=== PATIENT | female | born 1955 | race Caucasian/White ===

== ENCOUNTER 2019-04-25 07:22 | Outpatient (CLI) | payer BC, SELFPAY ==
--- NOTE | ~2019-04-25 | NM_ITS ---
EXAMINATION: NM rio stress w perfusion DATE: 04/25/2019 10:49 INDICATION: Dyspnea on exertion. Preop. TECHNIQUE: Rest images were obtained following intravenous administration of 11.22 mCi Tc99m tetrofos min (Myoview). The patient was infused intravenously with Lexiscan (regadenoson). Then, 32.7 mCi Tc99 m tetrofosmin (Myoview) was administered intravenously, and stress images were obtained. Data was rec onstructed into short axis and horizontal and vertical long axis SPECT images. Gated SPECT images wer e also obtained. COMPARISON: None. FINDINGS: There is no definite reversible or fixed perfusion abnormality to suggest ischemia or infar ction. There is no segmental wall motion abnormality. Left ventricular ejection fraction measures > 70%. IMPRESSION: 1. No definite ischemia or infarct. 2. Normal left ventricular ejection fraction measuring >70%. Reviewed, dictated and finalized at location A. E CQ DEVELOPER
--- NOTE | 2019-04-25 07:35 | EST_ITS ---
Patient Info Name: Britt Ferro Age: 63 years : 1955 Gender: Female Ht: 67 in Wt: 200 lbs BSA: 2.10 m2 Exam Date: 04/25/2019 8:43 AM Exam Location: [facility] Stress Patient Status: Outpatient Admit Date: 04/25/2019 Staff Ordering Physician: Júnior Gupta DO Attending Provider: Júnior Gupta DO Exercise Technologist: Elizabeth Trinidad RDCS Exercise Physician: Júnior Gupta DO Exam Type: CA stress rio w NM Study Info Indications Z01.818 - Encounter for other preprocedural examination R06.09 - Other forms of dyspnea A regadenoson stress test was performed. Summary 1. 1. Negative lexiscan stress test for ischemic ST changes by ECG criteria. 2. 2. Stable hemodynamics throughout the test. 3. 3. Nuclear scan to follow and will be reported separately. Please correlate with it. 4. 4. Patient informed of the above results. Protocol: Lexiscan Stress ECG Details Stage: REST Duration (min): 1 min : 10 sec HR (bpm): 89 SBP (mmHg): 107 DBP (mmHg): 63 Stage: REST Duration (min): 20 min : 56 sec HR (bpm): 88 SBP (mmHg): 107 DBP (mmHg): 63 Stage: STAGE 1 Duration (min): 1 min : 0 sec HR (bpm): 107 SBP (mmHg): 107 DBP (mmHg): 63 Stage: RECOVERY Duration (min): 1 min : 0 sec HR (bpm): 108 SBP (mmHg): 184 DBP (mmHg): 60 Stage: RECOVERY Duration (min): 2 min : 0 sec HR (bpm): 107 SBP (mmHg): 184 DBP (mmHg): 60 Stage: RECOVERY Duration (min): 3 min : 0 sec HR (bpm): 105 SBP (mmHg): 263 DBP (mmHg): 123 Stage: RECOVERY Duration (min): 4 min : 0 sec HR (bpm): 106 SBP (mmHg): 115 DBP (mmHg): 79 Stage: RECOVERY Duration (min): 4 min : 59 sec HR (bpm): 99 SBP (mmHg): 111 DBP (mmHg): 78 Rest HR: 88 bpm Peak HR: 112 bpm Rest Sys BP: 107 mmHg Peak Sys BP: 130 mmHg Max Pred HR: 157 bpm % Max Pred HR: 71 % Target HR: 133 bpm Max RPP: 14,560 bpm*mmHg Termination Reason: Completed protocol Cardiac Symptoms: Shortness of breath Total Time: 1 min : 0 sec Rest Muñoz BP: 63 mmHg Peak Muñoz BP: 60 mmHg Total Dose: 0.4 mg Resting ECG Sinus rhythm, low voltage in diffuse leads. Stress ECG No ST changes. Arrhythmias None. Report Signatures
== END 2019-04-25 07:23 | disposition home or self-care (01) ==
PROVIDERS: PCP Family Medicine; Visit Provider Internal Medicine Cardiovascular Disease
DX: Z01.810 Encounter for preprocedural cardiovascular examination (principal); R06.09 Other forms of dyspnea
CPT/HCPCS: 78452; 93017; A9502; J2785

== ENCOUNTER 2019-04-30 01:17 | Day surgery (SDC) | payer BC, SELFPAY ==
[2019-04-11 14:41] VITALS: BP 125/81; PULSE 83; RESP 16; TEMP 36.8; O2SAT 98; BMI 32.3
--- NOTE | 2019-04-28 15:21 | HP_ITS ---
DATE OF SERVICE: 04/30/2019 ADMITTING DIAGNOSIS: Degenerative joint disease, right knee. HISTORY OF PRESENT ILLNESS: The patient is a 63-year-old female, patient of Dr. Ferguson, who presents today for a right total knee arthroplasty. She has been having pain in the right knee for several years. She has severe [id number] arthritis in the medial compartment. She has had a partial knee replacement done on her left knee, which she is doing very well. Unfortunately, her right knee remains very symptomatic and painful for her on a daily basis. She feels at this point she would rather proceed with surgical procedure rather than continued nonsurgical treatment. She has been evaluated for possible partial knee replacement. Unfortunately, findings on MRI scan precluded this and therefore, presents today for a right total knee arthroplasty. PAST SURGERIES: She has had a bunion surgery on the right foot in December of 2018, partial knee in 2015, lumpectomy in 2007, sinus surgery in 2002. MEDICATIONS: She takes 1. Atorvastatin 20 mg daily. 2. Fluconazole 150 mg daily. 3. Hydrochlorothiazide 25 mg daily. 4. Lisinopril 40 mg daily. ALLERGIES: NO KNOWN DRUG ALLERGIES. FAMILY HISTORY: Noncontributory. SOCIAL HISTORY: She is a nonsmoker. PHYSICAL EXAMINATION: VITAL SIGNS: She is 5 feet 8 inches, 205 pounds. Other vital signs per nursing on the morning of surgery. HEENT: Grossly normal. LUNGS: Clear bilaterally. HEART: Regular rate and rhythm. EXTREMITIES: She walks with a mild limp. Range of motion of the right knee is from 0-140. Normal AP stability as well as medial-lateral stability. No edema in the right lower extremity. Skin is all normal. Hip range of motion is full without discomfort. Negative Stinchfield maneuver. 2+ dorsalis pedis and posterior tibial pulse. Normal sensation to right lower extremity. IMAGING DATA: X-rays demonstrate severe medial compartment arthritis with mild subluxation of the femur on the tibia. IMPRESSION: The patient has severe medial compartment arthritis. Again, she has had an MRI scan, which was reviewed by Dr. George. Due to the findings on this, he did not feel she would be a good partial candidate and therefore has recommended total knee, which the patient would like to proceed with. Surgical procedure as well as risks complications were discussed. All questions were answered to proceed. The patient will avoid any aspirin, ibuprofen products 1 week prior to surgery. We will use Eliquis for 2 weeks followed by aspirin for DVT prophylaxis. The patient will see Dr. Ferguson. She is also seeing Dr. Gupta, the histology tech, for presurgical clearance. She has had a stress test that was done on 04/25/2019, which showed no definite ischemia or infarct and ejection fraction was greater than 70%. The patient's nasal swab was negative. Hemoglobin 15.0, platelets are 255. On Chem panel, potassium was found to be low at 3.1, this is being supplemented. We will check another potassium the morning of surgery. Her creatinine is 0.80 with GFR greater than 60. D I MT: Kristel
[2019-04-30] VITALS (12 sets, daily range): BP systolic 113–136; BP diastolic 66–74; PULSE 79–105; RESP 11–20; TEMP 36.6–37; O2SAT 94–99
--- NOTE | ~2019-04-30 | XR_ITS ---
EXAMINATION: XR knee RT 2V DATE: 04/30/2019 16:19 INDICATION: Total right knee arthroplasty. Postop. TECHNIQUE: 2 views of right knee were obtained. COMPARISON: None. FINDINGS: There is a total right knee arthroplasty without patellar resurfacing in near-anatomic alig nment. No fracture. There is gas in the knee joint and soft tissues, consistent with recent surgery. IMPRESSION: 1. Total right knee arthroplasty in near-anatomic alignment. Reviewed, dictated and finalized at location A. GRAPH OPERATOR
--- NOTE | 2019-04-30 09:50 | WPDANESEPPF ---
Anes - Initial Pre Proc Eval Procedure: Operation Date: 04/30/19 12:00 Proposed Procedures p Right Total Knee Arthroplasty - Joey De Santiago MD Date/Time: 04/30/19 09:50 Surgeon: Joey De Santiago MD Pre Op Diagnosis: OA Right Knee Patient Data Age: 63 Gender: F Height: 1.7 m Weight: 93.6 kg Last Vital Signs Temp 36.8 C 04/11/19 14:41 Pulse 83 04/11/19 14:41 Resp 16 04/11/19 14:41 BP 125/81 04/11/19 14:41 Pulse Ox 98 04/11/19 14:41 Allergies Allergy/AdvReac Type Severity Reaction Status Date / Time oxycodone AdvReac Nausea Verified 04/30/19 10:48 Home Medications Medication Instructions Recorded Confirmed Type atorvastatin 20 mg PO DAILY 04/11/19 04/30/19 History estradiol 10 mcg vaginal insert, See Rx Instructions VAGINAL 04/21/19 04/21/19 History in a starter dose pack .COMPLEX hydrochlorothiazide 25 mg tablet 12.5 mg PO DAILY tablet 04/21/19 04/21/19 History lisinopril 40 mg tablet 20 mg PO DAILY tablet 04/21/19 04/21/19 History ECG: SINUS RHYTHM LOW QRS VOLTAGE IN PRECORDIAL BORDERLINE R WAVE PROGRESSION, ANTERIOR LEADS BORDERLINE T WAVE ABNORMALITY- ANTEROLAT/INF LEADS BASELINE ARTIFACT- I, II, III, AVR, AVL, AVF BORDERLINE ECG Other Studies: stress test 04/25/2019 FINDINGS: There is no definite reversible or fixed perfusion abnormality to suggest ischemia or infarction. There is no segmental wall motion abnormality. Left ventricular ejection fraction measures >70%. IMPRESSION: 1. No definite ischemia or infarct. 2. Normal left ventricular ejection fraction measuring >70%. Patient hx anesthesia problems: none Family hx anesthesia problems: none [facility] Past Medical History Medical History (Updated 04/30/19 @ 12:01 by Angel Lehman DO) FHx: migraine headaches Hyperlipidemia Hypertension Psychiatric disorder Surgical History Surgical History (Updated 04/21/19 @ 10:36 by Vannesa Melendez, NORA) History of bunionectomy History of left knee surgery History of reduction surgery of right breast History of sinus surgery Family History Family History (Updated 04/21/19 @ 10:37 by Vannesa Melendez CMA) Father Diabetes mellitus Hypertension Alzheimer disease Mother Hypertension Hyperlipidemia Sibling Hypertension Hyperlipidemia Afib Social History Social History (Updated 04/21/19 @ 10:37 by Vannesa Melendez CMA) Smoking status: Never smoker Alcohol intake: current Gender identity (if verbalized by the patient): Female Anes - Eval Final PreProcedure Day of Procedure 04/30/19 09:50 Patient weight: obese Heart: regular rate and rhythm Lungs: clear to auscultation and normal air movement Airway: Mallampati scale class II Neurological: alert and oriented Last oral intake: >/= 8 hours ASA classification: III Emergent: no Anesthetic plan: proceed Anesthesia type and monitoring: general ETT and standard monitoring Informed Consent: The patient's anesthetic plan and its attendant risks and benefits were discussed with the patient/family/POA. Questions were solicited and answers provided to the satisfaction of the patient/family/POA.
[2019-04-30] MEDS: LACTATED RINGERS 1,000 ML 30 ML IV CONT ×2 (10:25→15:59)
--- NOTE | 2019-04-30 12:21 | SUR.PREOP ---
1215- CHECKED ON PT IN PREOP. PT FACE RED AND SHE STATED HER HEAD ITCHES. NO OTHER SYMPTOMS. VANCOMYCIN RUNNING, STOPPED VANCO. PT UP TO RESTROOM. DR. THAKKAR NOTIFIED. LR RUNNING.
--- NOTE | 2019-04-30 12:43 | WPDHPUPDATE1 ---
History and Physical Update Update Date/Time: 04/30/19 12:43 History and Physical has been reviewed, including an updated exam of the patient. There are NO changes in the patient's condition. Risks, benefits, and alternatives have been discussed and questions answered. Patient agrees to proceed with procedure.
[2019-04-30] MEDS: IBUPROFEN IV 800 MG/200 ML 800 MG/200 ML BAG 400 MG IVPB (12:50)
[2019-04-30] MEDS: ceFAZolin 2 GM/D5W 50 ML 2 GM/50 ML BAG IVPB (12:52)
[2019-04-30] MEDS: ceFAZolin SODIUM 1 GM VIAL 3 GM IRRIGATION (13:59)
[2019-04-30] MEDS: ceFAZolin SODIUM 1 GM VIAL IV PUSH (14:53)
--- NOTE | 2019-04-30 15:43 | PM.PROC ---
Procedure Note - Detailed Date of procedure: 04/30/19 Pre-op diagnosis: OA Right Knee Post-op diagnosis: same Procedure performed: Right total knee arthroplasty I Description of procedure: Patient brought to the operating room general anesthesia was administered of the right knee prepped draped usual fashion. She received weight based vancomycin 2 g of Ancef preoperatively. 1 g of tranexamic acid IV given. limb was exsanguinated and tourniquet elevated to 300 mm of mercury. A 7 inch longitudinal midline incision was used and a vastus medialis splitting approach utilized. The infrapatellar and suprapatellar fat pads were excised and a quadriceps synovectomy carried out the patella showed chondromalacia of the far medial aspect but the remainder of the articular cartilage was normal I thought this was most appropriate for patellar non resurfacing. A lateral facetectomy was performed. a guide fili was inserted down the femoral canal after aspiration canal contents using the 5? valgus cutting bushing 10 mm of bone removed the distal femur. the tibial plateau was cut performing a skim cut off the medial tibial plateau where area. she signed a significant varus alignment to it tibia and this removed about 12 or 13 mm of bone laterally. the flexion gap was assessed and measured 8 mm medially and 14 mm laterally. we found that after drawing on Whitesides line and the trans epicondylar axis for degrees of external rotation matched the trans epicondylar axis well the femur was sized to a 67.5 Bankart AP and chamfer cuts were made and this fit line to line medial collateral and the anterior cut rested on the anterior cortex. The tibia was sized to a 75 vanguard which fit line to line fixed route bus operator laterally and anteromedially. This was punched and we removed additional medial tibial and fixed route bus operator medial tibial osteophyte. Pino we trialed with the 12 PS insert. the knee came out to test full extension with a negative bounce. At 90? of flexion the medial side gaps 1 mm but the a lateral side was a bit loose at 3 min and extension medial back at her 2 mm the lateral side gap 4 mm. We trialed with a 13 insert and there was no plica left knee anterior drawer degrees and in the knee lacked few degrees of extension with a positive bounce and no plate medially with valgus stress in extension. the superficial collateral ligament had not been stripped at this point the capsule Zenia osteophytes and anterior subluxation was released all the way around I felt that the lateral side was too loose in flexion extension with the 12 insert so I elected to reapplied tibial cutting guide and put degree of varus on the tibial cut we carefully removed mm of bone from the sclerotic medial side and made sure we had a flat tibial surface with no off. We Re punched the tibia. Alignment looked like 1? varus with a long alignment fili appropriate slope. On trialing with a 13 we now had a mm of plate medially at 90? 2 mm of lateral play in a more appropriate anterior drawer feel and in extension the medial side opened up 1-2 laterally 3 mm that had better stability varus well and 30? flexion the same stability findings. Of medial lug drills lug holes drilled on the femur and posterior osteophytes bone was removed the medial lateral femoral condyles. step drill was used to make a full perforations in the tibial plateau. Two packages of Biomet cement were mixed 1 continue gentamicin powder the cement was medially applied the tibial component then the femoral component cement applied to the tibial plateau pressurized in the 75 vanguard tibia fully seated. Cement applied to the femur and the 67.5 femoral component fully seated. a 13 mm 5 and 1 trial was placed and the knee brought into extension for pressurization. Tourniquet was released. total tourniquet time emboli was about 95 min. Cement was allowed to harden in hemostasis was achieved excess cement was sought for removed and we trialed with a 13 mm insert which had th
--- NOTE | 2019-04-30 16:20 | SUR.PHASEI ---
1610 xrays of right knee done
--- NOTE | 2019-04-30 17:07 | SUR.PHASEI ---
1650 updated family in waiting room.
--- NOTE | 2019-04-30 17:35 | PC.NURSE ---
This patient, Britt Ferro, was admitted to [facility] Surg Room 315-01. Patient/family oriented to hospital policies and general routines including ID bracelet, bed and alarms, visiting hours, pain management, procedures, bathroom and other care routines, personal items, smoking policy, room service/diet, and visiting hours. Valuables list has been completed. Information on how to activate the Rapid Response Team has been discussed. Patient/Family are encouraged to report perceived risks to care and to ask questions if they do not understand what they are told or what they should do.
[2019-04-30] MEDS: TRAMADOL HCL 50 MG TABLET PO ×2 (18:14→23:47)
[2019-04-30] MEDS: DOCUSATE SODIUM 100 MG CAPSULE PO (18:49)
[2019-04-30] MEDS: SODIUM CHLORIDE 0.9% IV 1,000 ML 125 ML IV CONT (18:50)
[2019-04-30] MEDS: GABAPENTIN 300 MG CAPSULE PO (18:52)
[2019-04-30] MEDS: ACETAMINOPHEN 500 MG TABLET 1000 MG PO (23:47)
[2019-05-01 02:00] VITALS: BP 97/56; PULSE 70; RESP 16; TEMP 36.3; O2SAT 93
[2019-05-01] MEDS: ACETAMINOPHEN 500 MG TABLET 1000 MG PO ×2 (05:27→13:47)
[2019-05-01] MEDS: TRAMADOL HCL 50 MG TABLET PO ×2 (05:28→13:47)
[2019-05-01 06:00] VITALS: BP 106/58; PULSE 67; RESP 16; TEMP 36.4; O2SAT 93
[2019-05-01 06:57] LABS: Basophils Percent Auto 0.1 % (0.2-1.2); Hematocrit 35.1 % (37.0-47.0); Hemoglobin 11.5 g/dL (12.0-15.0); Immature Granulocyte Absolute 0.08 K/mm3 (0.00-0.031); Immature Granulocyte Percent A 0.7 % (0-0.5); Lymphocytes Absolute Auto 0.56 K/mm3 (0.9-3.2); Mean Corpuscular HGB Conc 32.8 g/dl (32-36); Mean Corpuscular Volume 88.6 fl (80-100); Mean Platelet Volume 10.4 fl (7.4-10.4); Monocytes Absolute Auto 0.6 K/mm3 (0.1-0.6); Monocytes Percent Auto 5.4 % (2.6-8.5); Neutrophils Absolute Auto 9.9 K/mm3 (1.3-6.7); Neutrophils Percent Auto 88.8 % (45.5-73.1); Platelet Count Result 193 k/mm3 (150-375); Red Blood Count 3.96 M/mm3 (4.2-5.4); Red Cell Distribution Width 11.9 % (11.5-14.5); White Blood Count 11.1 K/mm3 (4.5-10.0)
[2019-05-01 07:09] LABS: Blood Urea Nitrogen 16 mg/dL (7-17); Calcium 8.3 mg/dL (8.4-10.2); Carbon Dioxide 28 mmol/L (22-30); Chloride 101 mmol/L (98-107); Estimated CRCL calculation 73 ml/min; Estimated Glomerular Filt Rate > 60; Glucose 117 mg/dL (65-105); Potassium 3.8 mmol/L (3.4-5.0); Sodium 138 mmol/L (137-145)
[2019-05-01] MEDS: GABAPENTIN 300 MG CAPSULE PO ×2 (08:58→13:47)
[2019-05-01] MEDS: polyethylene glycoL 3350 17 GM POWD.PACK PO (08:58)
[2019-05-01] MEDS: APIXABAN 2.5 MG TABLET PO (08:59)
[2019-05-01] MEDS: ATORVASTATIN 20 MG TABLET PO (09:00)
[2019-05-01] MEDS: SENNA/DOCUSATE SODIUM TABLET 2 TAB PO (09:01)
[2019-05-01 10:00] VITALS: BP 98/63; PULSE 78; RESP 16; TEMP 36.6; O2SAT 97
--- NOTE | 2019-05-01 10:28 | DS_ITS ---
DATE OF DISCHARGE: 05/01/2019 ADMITTING DIAGNOSIS: Degenerative joint disease, right knee. HOSPITAL COURSE: The patient is a 63-year-old female who underwent right total knee arthoplasty by Dr. De Santiago on 04/30/2019, underwent procedure without any complications. Postoperatively, she has been afebrile. Vital signs were stable. Neurovascularly intact. Her wound is dry. Postop day 1, Chem panel is all within normal limits. Hemoglobin was 11.5, platelets 193. She is weightbearing as tolerated. She is on Eliquis for 2 weeks followed by baby aspirin for DVT prophylaxis. She has had difficulties in the past with narcotics. Pain at this point on postop day 1, has been well controlled with Celebrex 100 mg daily as well as gabapentin 300 mg t.i.d. and tramadol. She is also on MiraLAX and Senokot. Her wound is dry. She has a Mediplex dressing over it. She has outpatient therapy starting on Sunday. The patient was advised to keep leg elevated to prevent swelling, but do her exercises on a regular basis at home. If she has any questions or concerns, she is to call the office; otherwise, will see her at her appointed date. Shanna I MT: Kristel
--- NOTE | 2019-05-01 11:48 | PM.IMCN ---
Assessment and Plan Assessment and plan (1) Primary osteoarthritis of right knee: Code(s): M17.11 - Unilateral primary osteoarthritis, right knee Status: Acute Assessment and Plan: Now status post right total knee replacement by Dr. De Santiago on 04/30/2019. POD #1. Postoperative management per Orthopedics. Continue PT/OT. As patient has not been symptomatic with lower blood pressure, medically stable to discharge when ready orthopedically. Thank you for allowing us to participate care this patient. Will follow as long as she is in Hospital. (2) Status post total right knee replacement: Code(s): Z96.651 - Presence of right artificial knee joint Status: Acute Assessment and Plan: POD #1. Plan per Orthopedics. (3) Hypertension: Qualifiers: Hypertension type: essential hypertension Qualified Code(s): I10 - Essential (primary) hypertension Code(s): I10 - Essential (primary) hypertension Status: Acute Assessment and Plan: Blood pressure reviewed on 05/01/2019. Agree with holding home hydrochlorothiazide and lisinopril. Will continue to monitor while here. (4) Hyperlipidemia: Qualifiers: Hyperlipidemia type: unspecified Qualified Code(s): E78.5 - Hyperlipidemia, unspecified Code(s): E78.5 - Hyperlipidemia, unspecified Status: Acute Assessment and Plan: Continue atorvastatin. (5) DVT prophylaxis: Code(s): Z29.9 - Encounter for prophylactic measures, unspecified Status: Acute Assessment and Plan: Apixaban per Orthopedics. HPI Data of Consult Consult date: 05/01/19 Requesting Physician: Joey De Santiago MD Primary Care Provider: David FergusonMD Consult Narrative Narrative: Date and Time of Service of Consult: May 01, 2019 at 11:25 a.m.. Reason for Consultation: Medical management. History of Present Illness: Britt Ferro is a 63 year old female with known osteoarthritis the right knee was brought in electively on 04/30/2019 for right total knee replacement. Patient has been doing well postoperatively. She had failed conservative management having previously used oral medications as well as having injection in the right knee. She does have pain in the right knee currently but this is tolerable. She denies headache and dizziness chest pain. No shortness of breath. No abdominal pain. She does have known hypertension for which she is now being followed by Dr. Gupta. She recently had decrease in her medication due to lower blood pressure. At the present time, patient still has urinary catheter in place. Review of Systems Review of Systems: All systems reviewed & are unremarkable except as noted in HPI and below Constitutional: Constitutional: Denies chills and Denies fever(s) Eyes: Eyes: Denies blurry vision and Denies diplopia ENT: Denies nasal congestion and Denies nasal discharge Cardiovascular: Cardiovascular: Denies chest pain, Denies lightheadedness and Denies palpitations Respiratory: Respiratory: Denies cough and Denies dyspnea Gastrointestinal: Gastrointestinal: Denies abdominal pain, Denies nausea and Denies vomiting Genitourinary: Comments: Urinary catheter in place Musculoskeletal: Musculoskeletal: Reports arthralgias (Right knee tolerable) Integumentary/Breasts: Skin/Breast: Denies rash Neurologic: Denies confusion, Denies vertigo, Denies headache(s) and Denies numbness Psychiatric: Psychiatric: Denies anxiety, Denies confusion and Denies depression [facility] Past Medical History Medical History FHx: migraine headaches Hyperlipidemia Hypertension Psychiatric disorder Surgical History Surgical History History of bunionectomy History of left knee surgery History of reduction surgery of right breast History of sinus surgery Family Hi
--- NOTE | 2019-05-01 14:49 | P.PNAN_ITS ---
Anes - Prog Note Post-Op Date/Time: 05/01/19 14:49 Cardiovascular status: normal Respiratory status: normal Airway patency: baseline Mental status: baseline Post-Op hydration status: normal Vital Signs: Last Vital Signs Temp 97.9 F 05/01/19 10:00 Pulse 78 05/01/19 10:00 Resp 16 05/01/19 10:00 BP 98/63 L 05/01/19 10:00 Pulse Ox 97 05/01/19 10:00 I/O: Intake & Output 04/30/19 05/01/19 05/01/19 23:59 07:59 15:59 Intake Total 1380 870 490 Output Total 250 750 Balance 1130 120 490 Laboratory Tests 05/01/19 06:17 05/01/19 06:17 05/01/19 05/01/19 06:17 06:17 WBC 11.1 H RBC 3.96 L Hgb 11.5 L D Hct 35.1 L MCV 88.6 MCH 29.0 MCHC 32.8 RDW 11.9 Plt Count 193 MPV 10.4 Immature Gran % (Auto) 0.7 H Neut % (Auto) 88.8 H Lymph % (Auto) 5.0 L [place] % (Auto) 5.4 Eos % (Auto) 0.0 Baso % (Auto) 0.1 L Lymph # (Auto) 0.56 L [place] # (Auto) 0.6 Eos # (Auto) 0.0 Baso # (Auto) 0.0 Abs Immat Gran (auto) 0.08 H Absolute Neuts (auto) 9.9 H Absolute Nucleated RBC 0.0 Nucleated RBC % 0.0 Sodium 138 Potassium 3.8 Chloride 101 Carbon Dioxide 28 BUN 16 Creatinine 0.80 Estim Creat Clear Calc 73 Estimated GFR > 60 Glucose 117 H Calcium 8.3 L Post-procedural complaints: none Patient Feedback: Patient satisfied with anesthetic care.
[2019-05-01] MEDS: CELECOXIB 100 MG CAPSULE PO (15:16)
--- NOTE | 2019-05-01 19:54 | PC.NURSE ---
Patient discharged via wheel chair and POV, extra dressing sent home with patient, IV line removed. Discharge instructions verified and patient verbalized understanding.
== END 2019-05-01 16:15 | disposition home or self-care (01) ==
LOC: ANHSURGERY 09:37 → ANH3MEDSUR 17:48
PROVIDERS: PCP Family Medicine; Visit Provider Orthopaedic Surgery
PROC: (CPT 27447; principal; 2019-04-30 12:00)
DX: M17.11 Unilateral primary osteoarthritis, right knee (principal); I10 Essential (primary) hypertension; E78.5 Hyperlipidemia, unspecified; E66.9 Obesity, unspecified; Z68.31 Body mass index [BMI] 31.0-31.9, adult
CPT/HCPCS: 27447; 36415; 73560; 80048; 85025; 86850; 86900; 86901; 97110; 97116; 97161; 97165; 97535; A9270; C1713; C1776; J0131; J0171; J0330; J0690; J1100; J1741; J2270; J2405; J2704; J2795; J3010; J3370; J7030; J7120